=== PATIENT | female | born 1960 | race Caucasian/White ===

== ENCOUNTER 2017-10-13 15:09 | Inpatient (IN) ==
--- NOTE | 2017-10-13 15:49 | XRay Report ---
Indication: Clearance XR chest 1V: Comparison: 03/01/2016 Technique: Single upright portable chest Findings: Patient showed similar appearance to the previous examination with normal heart, mediastinum and central vascularity. No acute pulmonary abnormality seen. No acute new bony findings are seen. Impression: No active cardiopulmonary findings. .
--- NOTE | 2017-10-13 16:18 | Emergency Department Report ---
Medical Clearance HPI - General Chief complaint: Medical Clearance Stated complaint: [facility] clearance Time Seen by Provider: 10/13/17 15:10 Source: patient, RN notes reviewed, old records reviewed, other ([facility]) Mode of arrival: ambulatory Limitations: altered mental status - History of Present Illness HPI Narrative: 57yo woman presented to the ER for evaluation of delusional beliefs. Pt is a known schizophrenic, living in a MD in a [facility]. Over the last several weeks, she has been having increasingly delusional beliefs related to her friends and family. Pts medications are apparently at maximum dosing. Pt is pending [facility] admission for further eval/stabilization. complaint: medical clearance requested Onset (ago): week(s) Reason for Medical Clearance: psychiatric condition Place: other ([facility]) Alleged Intoxication: No Compliant with Home Medications: Yes Traumatic Symptoms: denies traumatic injury Associated Symptoms: denies other symptoms Treatments Prior to Arrival: medication Home medications: Home Medications Medication Instructions Recorded Confirmed Polyvinyl Alcohol [Artificial 1 drop BOTH EYES PRN #0 02/29/16 10/13/17 Tears] Propranolol HCl 80 mg PO DAILY #0 02/29/16 10/13/17 Tiotropium [place] [Spiriva] 1 cap ORAL INH DAILY #0 02/29/16 10/13/17 buPROPion HCl [Bupropion Xl] 150 mg PO DAILY #0 02/29/16 10/13/17 guaiFENesin [Guaifenesin] 400 mg PO BID #0 02/29/16 10/13/17 Acetaminophen [Acetaminophen Extra 1,000 mg PO BID 10/13/17 10/13/17 Strength] Albuterol/Ipratropium [Duoneb] 3 ml INH HS PRN 10/13/17 10/13/17 Aspirin [Aspirin] 81 mg PO DAILY 10/13/17 10/13/17 Cetirizine [Zyrtec] 10 mg PO DAILY PRN 10/13/17 10/13/17 Cholecalciferol (Vitamin D3) 2,000 unit PO DAILY 10/13/17 10/13/17 [Vitamin D3] Cyclobenzaprine [Flexeril] 10 mg PO HS PRN 10/13/17 10/13/17 Mag Hydrox/Aluminum Hyd/Simeth 30 ml PO Q8HR 10/13/17 10/13/17 [Alum-Mag Hydroxide-Simeth Liq] Omeprazole [Prilosec] 20 mg PO ACB 10/13/17 10/13/17 Paliperidone Palmitate [Invega 819 mg IM Q90D 10/13/17 10/13/17 Trinza] Ziprasidone HCl [Geodon] 80 mg PO BID 10/13/17 10/13/17 Allergies/Adverse reactions: Allergies Allergy/AdvReac Type Severity Reaction Status Date / Time clarithromycin Allergy Unknown Verified 07/15/17 23:43 fluphenazine Allergy Unknown Verified 07/15/17 23:43 morphine Allergy Unknown Verified 07/15/17 23:43 moxifloxacin Allergy Unknown Verified 07/15/17 23:43 Penicillins Allergy Unknown Verified 07/15/17 23:43 Tetanus Vaccines and Toxoid Allergy Unknown Verified 07/15/17 23:43 Review of Systems Limitations: ROS unobtainable due to patient's medical condition PFSH Patient Stated Medical History Dental Problems Yes Hypertension No Asthma Yes Chronic Obstructive Pulmonary Yes Disease (COPD) Gastroesophageal Reflux Yes Disease Hx Urinary Tract Infection Yes Schizophrenia Yes: MANIC DEPRESSIVE - Social History Smoking status: Never smoker Physical Exam - Limitations Limitations: altered mental status - General General appearance: alert, in no apparent distress, obese - Normal Exams: Head:: Normocephalic without trauma Eyes:: Pupils are PERRLA w/ EOMI, No scleral icterus, irritation, or foreign bodies noted ENMT:: No facial trauma, nasal exudates, pharyngeal erythema, or exudates are noted Neck:: Full range of motion, without adenopathy Lymphatic:: No lymphadenopathy Musculoskeletal:: No tenderness, or deformity noted Neurological:: Patient is alert, and oriented - Chest Chest inspection: Present: normal inspection, symmetric chest wall rise. Absent : tenderness, rash - Respiratory Respiratory exam: Present: normal lung sounds bilaterally, wheezes (Faint wheezing in LLs). Absent: respiratory distress, prolonged expiratory phase, crackles - Cardiovascular Cardiovascular exam: Present: regular rate, normal rhythm, normal heart sounds - Abdominal Exam Abdominal exam: Present: soft. Absent: distention, tenderness, guarding, rebound, rigidity - Skin Skin exam: Present: warm, dry, intact, rash (Faint rash and bruising on pts lower extremities) - Psychiatric Psychiatric exam: Present: flat affect, other (Suspicious) Course Vital Signs Temperature 98.3 F 10/13/17 15:14 Pulse Rate 84 10/13/17 15:14 Respiratory Rate 20 10/13/17 15:14 Blood Pressure 145/76 H 10/13/17 15:14 Pulse Oximetry 93 10/13/17 15:14 Temperature 98.3 F 10/13/17 15:14 Pulse Rate 84 10/13/17 15:14 Respiratory Rate 20 10/13/17 15:14 Blood Pressure 145/76 H 10/13/17 15:14 Pulse Oximetry 93 10/13/17 15:14 Medical Clearance - [facility] Narrative Medical decision making narrative: Pt cleared for admission to [facility]. Will await arrival of coordinator and physician for evaluation and transfer. - Differential Diagnosis Differential Diagnosis Narrative: Schizophrenia, husam, delirium, dementia - Medical Records Attestation: I reviewed the patient's medical records. - Lab Data Attestation: I reviewed the patient's lab results. Result diagrams: 10/13/17 15:52 10/13/17 15:52 Lab Results 10/13/17 10/13/17 10/13/17 Range/Units 15:48 15:52 15:52 WBC 10.3 (4.5-11.0) T/MM3 RBC 4.00 (4.00-5.20) M/MM3 Hgb 11.5 L (12-16) GM/DL Hct 37.8 (36-46) % MCV 94.5 (80-100) UM3 MCH 28.8 (26-34) UUG MCHC 30.4 L (31-37) GM/DL RDW Std Deviation 48.5 (36.9-50.2) FL Plt Count 240 (130-400) T/MM3 MPV 9.7 (9.4-12.4) UM3 Immature Gran % (Auto) 0.2 (0.0-0.5) % Neut % (Auto) 68.4 H (33-66) % Lymph % (Auto) 20.0 L (23-45) % [place] % (Auto) 8.7 (0-9.0) % Eos % (Auto) 2.2 (0-4) % Baso % (Auto) 0.5 (0-2) % Neut # (Auto) 7.1 (1.8-7.7) T/MM3 Lymph # (Auto) 2.1 (1-4.8) T/MM3 [place] # (Auto) 0.9 H (0-0.8) T/MM3 Eos # (Auto) 0.2 (0-0.5) T/MM3 Baso # (Auto) 0.1 (0-0.2) T/MM3 Abs Immat Gran (auto) 0.02 (0.00-0.03) T/MM3 Turbidity < 20 (0-20) Sodium 143 (134-144) MEQ/L Potassium 4.3 (3.6-5) MEQ/L Chloride 106 (98-107) MEQ/L Carbon Dioxide 26 (22-30) MEQ/L Anion Gap 11 (5-15) MEQ/L BUN 15.0 (7-17) MG/DL Creatinine 1.8 H (0.7-1.2) MG/DL GFR Calculation 29 BUN/Creatinine Ratio 8 (6-26) RATIO Glucose 92 (65-110) MG/DL Calculated Osmolality 276 (261-280) MOSM/KG Calcium 9.4 (8.4-10.2) MG/DL Total Bilirubin 0.40 (0.20-1.30) MG/DL Icterus Index < 2 (0-7) AST 16 (14-36) U/L ALT 24 (9-52) U/L Alkaline Phosphatase 94 (38-126) U/L Total Protein 7.2 (6.3-8.2) G/DL Albumin 3.9 (3.5-5.0) G/DL Globulin 3.3 (2.4-3.6) G/DL Albumin/Globulin Ratio 1.2 (1.1-2.2) RATIO Specimen Hemolysis < 15 (0-25) Ur Collection Type Urine, clean catch Urine Color Yellow (YELLOW) Urine Clarity Clear Urine pH 6.5 (5.0-8.0) Ur Specific [place] <=1.005 L (1.015-1.025) Urine Protein Negative (NEGATIVE) Urine Glucose (UA) Negative (NEGATIVE) Urine Ketones Negative (NEGATIVE) Urine Occult Blood Negative (NEGATIVE) Urine Nitrate Negative (NEGATIVE) Urine Bilirubin Negative (NEGATIVE) Urine Urobilinogen 0.2 (NORMAL) EU/DL Ur Leukocyte Esterase 1+ A (NEGATIVE) Urine RBC None seen (0-3) /HPF Urine WBC 1-3 (0-5) /HPF Ur Squamous Epith Cells 0-5 Urine Bacteria None seen (NEGATIVE) Ur Culture Indicated? Cult not indicated Salicylates < 1.0 L (2-20) MG/DL Urine Opiates Screen ng/mL Ur Oxycodone Screen ng/mL Urine Methadone Screen ng/mL Ur Propoxyphene Screen ng/mL Acetaminophen < 10 L (10-30) UG/ML Ur Barbiturates Screen ng/mL U Tricyclic Antidepress ng/mL Ur Phencyclidine Scrn ng/mL Ur Amphetamines Screen ng/mL U Methamphetamines Scrn ng/mL U Benzodiazepines Scrn ng/mL Urine Cocaine Screen ng/mL U Cannabinoids Screen ng/mL Alcohol, Quantitative <10 (<10) MG/DL 10/13/17 Range/Units 15:52 WBC (4.5-11.0) T/MM3 RBC (4.00-5.20) M/MM3 Hgb (12-16) GM/DL Hct (36-46) % MCV (80-100) UM3 MCH (26-34) UUG MCHC (31-37) GM/DL RDW Std Deviation (36.9-50.2) FL Plt Count (130-400) T/MM3 MPV (9.4-12.4) UM3 Immature Gran % (Auto) (0.0-0.5) % Neut % (Auto) (33-66) % Lymph % (Auto) (23-45) % [place] % (Auto) (0-9.0) % Eos % (Auto) (0-4) % Baso % (Auto) (0-2) % Neut # (Auto) (1.8-7.7) T/MM3 Lymph # (Auto) (1-4.8) T/MM3 [place] # (Auto) (0-0.8) T/MM3 Eos # (Auto) (0-0.5) T/MM3 Baso # (Auto) (0-0.2) T/MM3 Abs Immat Gran (auto) (0.00-0.03) T/MM3 Turbidity (0-20) Sodium (134-144) MEQ/L Potassium (3.6-5) MEQ/L Chloride (98-107) MEQ/L Carbon Dioxide (22-30) MEQ/L Anion Gap (5-15) MEQ/L BUN (7-17) MG/DL Creatinine (0.7-1.2) MG/DL GFR Calculation BUN/Creatinine Ratio (6-26) RATIO Glucose (65-110) MG/DL Calculated Osmolality (261-280) MOSM/KG Calcium (8.4-10.2) MG/DL Total Bilirubin (0.20-1.30) MG/DL Icterus Index (0-7) AST (14-36) U/L ALT (9-52) U/L Alkaline Phosphatase (38-126) U/L Total Protein (6.3-8.2) G/DL Albumin (3.5-5.0) G/DL Globulin (2.4-3.6) G/DL Albumin/Globulin Ratio (1.1-2.2) RATIO Specimen Hemolysis (0-25) Ur Collection Type Urine Color (YELLOW) Urine Clarity Urine pH (5.0-8.0) Ur Specific [place] (1.015-1.025) Urine Protein (NEGATIVE) Urine Glucose (UA) (NEGATIVE) Urine Ketones (NEGATIVE) Urine Occult Blood (NEGATIVE) Urine Nitrate (NEGATIVE) Urine Bilirubin (NEGATIVE) Urine Urobilinogen (NORMAL) EU/DL Ur Leukocyte Esterase (NEGATIVE) Urine RBC (0-3) /HPF Urine WBC (0-5) /HPF Ur Squamous Epith Cells Urine Bacteria (NEGATIVE) Ur Culture Indicated? Salicylates (2-20) MG/DL Urine Opiates Screen Negative ng/mL Ur Oxycodone Screen Negative ng/mL Urine Methadone Screen Negative ng/mL Ur Propoxyphene Screen Negative ng/mL Acetaminophen (10-30) UG/ML Ur Barbiturates Screen Negative ng/mL U Tricyclic Antidepress Negative ng/mL Ur Phencyclidine Scrn Negative ng/mL Ur Amphetamines Screen Negative ng/mL U Methamphetamines Scrn Negative ng/mL U Benzodiazepines Scrn Negative ng/mL Urine Cocaine Screen Negative ng/mL U Cannabinoids Screen Negative ng/mL Alcohol, Quantitative (<10) MG/DL - Radiology Data Attestation: I reviewed the patient's radiology results. CXR: Findings: Patient showed similar appearance to the previous examination with normal heart, mediastinum and central vascularity. No acute pulmonary abnormality seen. No acute new bony findings are seen. Impression: No active cardiopulmonary findings. Disposition Clinical Impression: Delusion Schizophrenia Qualifiers: Schizophrenia type: unspecified Qualified Code(s): F20.9 - Schizophrenia, unspecified Disposition: 66 To [facility] Print Language: Romansh Condition: Stable Prescriptions: No Action Tiotropium [place] [Spiriva] 1 cap ORAL INH DAILY #0 buPROPion HCl [Bupropion Xl] 150 mg PO DAILY #0 guaiFENesin [Guaifenesin] 400 mg PO BID #0 Cyclobenzaprine [Flexeril] 10 mg PO HS PRN PRN Reason: Muscle Spasm Albuterol/Ipratropium [Duoneb] 3 ml INH HS PRN PRN Reason: Cough Cetirizine [Zyrtec] 10 mg PO DAILY PRN PRN Reason: Allergy Symptoms Propranolol HCl 80 mg PO DAILY #0 Polyvinyl Alcohol [Artificial Tears] 1 drop BOTH EYES PRN #0 Aspirin [Aspirin] 81 mg PO DAILY Omeprazole [Prilosec] 20 mg PO ACB Cholecalciferol (Vitamin D3) [Vitamin D3] 2,000 unit PO DAILY Ziprasidone HCl [Geodon] 80 mg PO BID Mag Hydrox/Aluminum Hyd/Simeth [Alum-Mag Hydroxide-Simeth Liq] 30 ml PO Q8HR Acetaminophen [Acetaminophen Extra Strength] 1,000 mg PO BID Paliperidone Palmitate [Invega Trinza] 819 mg IM Q90D Referrals: Jessica Cheek MD [Family Provider] - Time of Disposition: 16:49 - Seen By: physician
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
[2017-10-13] MEDS ORDERED: HALOPERIDOL 0.5 MG TABLET PO PRN (17:32)
[2017-10-13] MEDS ORDERED: HALOPERIDOL 5 MG/ML INJECTION IM PRN (17:32)
[2017-10-13] MEDS ORDERED: LORazepam 0.5 MG TABLET PO PRN (17:32)
[2017-10-13] MEDS ORDERED: CYCLOBENZAPRINE 10 MG TABLET PO PRN (18:01)
[2017-10-13] MEDS ORDERED: SYSTANE EYE DROPS 0.7ml EACH EYE PRN (18:01)
[2017-10-13 18:36] VITALS: BMI 32.9
[2017-10-13] MEDS: ZIPRASIDONE 40 MG CAPSULE PO SCH (20:19)
[2017-10-13] MEDS: ACETAMINOPHEN 500 MG TABLET PO SCH (20:19)
[2017-10-13] MEDS: GUAIFENESIN 400MG TABLET PO SCH (20:19)
[2017-10-13] MEDS: ALBUTEROL/IPRATROPIUM 2.5mg-0.5mg/3ml NEB AEROSOL PRN (21:30)
[2017-10-14] MEDS: MAG-AL + SIM ORAL LIQUID 30ml PO SCH ×3 (03:25→17:52)
[2017-10-14] MEDS: OMEPRAZOLE 20 MG CAPSULE PO SCH (05:44)
[2017-10-14] MEDS: ALBUTEROL/IPRATROPIUM 2.5mg-0.5mg/3ml NEB AEROSOL PRN (08:00)
[2017-10-14] MEDS: TIOTROPIUM 18mcg/cap HANDIHALER ORAL INH SCH (08:10)
[2017-10-14] MEDS: ZIPRASIDONE 40 MG CAPSULE PO SCH ×2 (10:30→20:16)
[2017-10-14] MEDS: PROPRANOLOL LA 80 MG CAPSULE PO SCH (10:32)
[2017-10-14] MEDS: GUAIFENESIN 400MG TABLET PO SCH ×2 (10:33→20:16)
[2017-10-14] MEDS: ASPIRIN 81 MG CHEWABLE TABLET PO SCH (10:33)
[2017-10-14] MEDS: ACETAMINOPHEN 500 MG TABLET PO SCH ×2 (10:34→20:16)
[2017-10-14] MEDS: BuPROPion XL 150mg (24HR) TABLET PO SCH (10:57)
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
[2017-10-14] MEDS: CYCLOBENZAPRINE 10 MG TABLET PO PRN (20:17)
[2017-10-15] MEDS: MAG-AL + SIM ORAL LIQUID 30ml PO SCH ×3 (03:12→17:35)
[2017-10-15] MEDS: OMEPRAZOLE 20 MG CAPSULE PO SCH (07:43)
[2017-10-15] MEDS: GUAIFENESIN 400MG TABLET PO SCH ×2 (08:23→20:00)
[2017-10-15] MEDS: PROPRANOLOL LA 80 MG CAPSULE PO SCH (08:23)
[2017-10-15] MEDS: BuPROPion XL 150mg (24HR) TABLET PO SCH (08:23)
[2017-10-15] MEDS: ZIPRASIDONE 40 MG CAPSULE PO SCH ×2 (08:23→17:35)
[2017-10-15] MEDS: ASPIRIN 81 MG CHEWABLE TABLET PO SCH (08:26)
[2017-10-15] MEDS: ACETAMINOPHEN 500 MG TABLET PO SCH ×2 (08:26→20:00)
[2017-10-15] MEDS: ALBUTEROL/IPRATROPIUM 2.5mg-0.5mg/3ml NEB AEROSOL PRN ×2 (08:30→20:55)
[2017-10-15] MEDS: TIOTROPIUM 18mcg/cap HANDIHALER ORAL INH SCH (08:43)
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
[2017-10-15] MEDS: CYCLOBENZAPRINE 10 MG TABLET PO PRN (20:00)
[2017-10-16] MEDS: MAG-AL + SIM ORAL LIQUID 30ml PO SCH ×3 (02:33→17:51)
[2017-10-16] MEDS: OMEPRAZOLE 20 MG CAPSULE PO SCH (09:42)
[2017-10-16] MEDS: BuPROPion XL 150mg (24HR) TABLET PO SCH (09:43)
[2017-10-16] MEDS: ASPIRIN 81 MG CHEWABLE TABLET PO SCH (09:43)
[2017-10-16] MEDS: GUAIFENESIN 400MG TABLET PO SCH ×2 (09:43→20:18)
[2017-10-16] MEDS: ZIPRASIDONE 40 MG CAPSULE PO SCH ×2 (09:43→17:49)
[2017-10-16] MEDS: ACETAMINOPHEN 500 MG TABLET PO SCH ×2 (09:43→20:18)
[2017-10-16] MEDS ORDERED: CYCLOBENZAPRINE 5 MG TABLET PO PRN (10:00)
[2017-10-16] MEDS: TIOTROPIUM 18mcg/cap HANDIHALER ORAL INH SCH (10:30)
[2017-10-16] MEDS: PROPRANOLOL LA 80 MG CAPSULE PO SCH (13:35)
--- NOTE | 2017-10-16 18:45 | Neuropsych Progress Note ---
[facility] Subjective Date: 10/16/17 - Sujective/Severity of Illness Medications: Acetaminophen (Tylenol) 1,000 mg PO BID [facility] Last Admin: 10/16/17 09:43 Dose: 1,000 mg Al Hydroxide/Mg Hydroxide (Maalox Plus) 30 ml PO Q8HR [facility] Last Admin: 10/16/17 17:51 Dose: 30 ml Albuterol/Ipratropium (Duoneb) 3 ml AEROSOL HS PRN PRN Reason: Cough Last Admin: 10/15/17 20:55 Dose: 3 ml Aspirin (Asa) 81 mg PO DAILY [facility] Last Admin: 10/16/17 09:43 Dose: 81 mg Bupropion HCl (Wellbutrin Xl) 150 mg PO DAILY [facility] Last Admin: 10/16/17 09:43 Dose: 150 mg Cyclobenzaprine HCl (Flexeril) 5 mg PO HS PRN PRN Reason: Muscle spasm Guaifenesin (Mucinex) 400 mg PO BID [facility] Last Admin: 10/16/17 09:43 Dose: 400 mg Haloperidol (Haldol) 0.5 mg PO Q6H PRN PRN Reason: Extreme agitation Haloperidol Lactate (Haldol) 0.5 mg IM Q6H PRN PRN Reason: Extreme agitation Lorazepam (Ativan) 0.5 mg PO Q6H PRN PRN Reason: Extreme agitation Lorazepam (Ativan Inj) 0.5 mg IM Q6H PRN PRN Reason: Extreme agitation Omeprazole (Prilosec) 20 mg PO ACB [facility] Last Admin: 10/16/17 09:42 Dose: 20 mg Polyethyl Glycol/Propylene Glycol (Systane Eye Drops) 1 drop EACH EYE PRN PRN Propranolol HCl (Inderal La) 80 mg PO DAILY [facility] Last Admin: 10/16/17 13:35 Dose: 80 mg Tiotropium [place] (Spiriva) 1 cap ORAL INH DAILY [facility] Last Admin: 10/16/17 10:30 Dose: 1 cap Ziprasidone (Geodon) 80 mg PO BIDWM [facility] Last Admin: 10/16/17 17:49 Dose: 80 mg Subjective: Patient seen and chart reviewed. Case discussed with treatment team. Patient is in dayroom taking a nap during time of rounds. She has been isolating less though some of what she shares in group is bizarre. Patient has denied any SI or HI. Patient has denied any adverse side effects related to psychotropic medications other than fatigue, but reports she feels more energetic than previously. Nursing staff report patient has not had any significant behavioral difficulties on the unit otherwise. Patient has been adherent with medications. Patient slept 9.5 hours overnight. VSS. Patient is eating well. Psychotropic PRNs required in the past 24 hours: none. Start Time: 10:40 Stop Time: 11:00 Mental Status Exam Vitals: Last Vital Signs Temp 98.2 F 10/16/17 16:00 Pulse 85 10/16/17 16:00 Resp 18 10/16/17 16:00 BP 145/71 H 10/16/17 16:00 Pulse Ox 92 10/16/17 16:00 Height: 1.78 m Weight: 104.2 kg - Mental Status Exam Muscle Strength/Tone: Normal Dressing: Casual Grooming: Disheveled Attitude: Cooperative Motor Activity: Normal Eye Contact: Good Speech: Normal Volume: Normal Rhythm: Appropriate Rhythm Orientation: Disoriented to time (can name month/year), Oriented to person, Oriented to place Mood: Neutral Affect: Blunted Rate of Thoughts: Appropriate Rate Thought Organization: Disorganized, Tangential Associations: Illogical Abstract Reasoning: Poor abstract reasoning Thought Content: Paranoia (seems to be improving) Perception/Psychotic: Psychotic (delusions only, denies AVH) Current Hallucinations: Auditory (unclear) Language: Naming Intact Fund of Knowledge: Other (likely decreased from baseline) Memory: Poor-recent Suicidal Ideation: Denies Homicidal Ideation: Denies Insight: Impaired Judgement: Impaired Impulse Control: Fair - Laboratory Result Diagrams: 10/16/17 07:19 10/16/17 07:19 Laboratory Results - last 24 hr 10/16/17 10/16/17 07:19 07:19 WBC 6.3 RBC 3.85 L Hgb 11.2 L Hct 36.4 MCV 94.5 MCH 29.1 MCHC 30.8 L RDW Std Deviation 47.1 Plt Count 260 MPV 9.7 Immature Gran % (Auto) 0.2 Neut % (Auto) 61.7 Lymph % (Auto) 25.4 Wagoner % (Auto) 8.1 Eos % (Auto) 4.0 Baso % (Auto) 0.6 Neut # (Auto) 3.9 Lymph # (Auto) 1.6 Wagoner # (Auto) 0.5 Eos # (Auto) 0.3 Baso # (Auto) 0.0 Abs Immat Gran (auto) 0.01 Turbidity < 20 Sodium 147 H Potassium 4.6 Chloride 108 H Carbon Dioxide 31 H Anion Gap 8 BUN 23.0 H D Creatinine 1.6 H D GFR Calculation 33 BUN/Creatinine Ratio 14 Glucose 102 Hemoglobin A1c 5.4 Calculated Osmolality 286 H Calcium 9.5 Icterus Index < 2 Triglycerides 154 H Cholesterol 120 L LDL Cholesterol, Calc 56.2 L VLDL Cholesterol 30.8 H HDL Cholesterol 33 L Cholesterol/HDL Ratio 3.6 Specimen Hemolysis < 15 Assessment and Plan (1) Psychosis Problem details: R/O Delirium due to unknown etiology History of Bipolar 1 disorder R/O Schizoaffective disorder R/O Delusional disorder R/O Major neurocognitive disorder Current visit: Yes Status: Acute (2) COPD (chronic obstructive pulmonary disease) Current visit: Yes Status: Acute (3) HTN (hypertension) Current visit: Yes Status: Acute (4) HLD (hyperlipidemia) Current visit: Yes Status: Acute (5) CAD (coronary artery disease) Current visit: Yes Status: Acute (6) CKD (chronic kidney disease) Current visit: Yes Status: Acute (7) Obesity Current visit: Yes Status: Acute (8) GERD (gastroesophageal reflux disease) Current visit: Yes Status: Acute (9) Osteoarthritis Current visit: Yes Status: Acute Continue current care; patient seems to be more energetic and less isolative. I suspect Geodon is more effective when she is taking it with meals as prescribed. Monitor mood, behavior and response to treatment. Hospital Course Summary Disclaimer: The visit summary below is not to be considered part of the above Progress Note. Hospital Course: Plan 10/13/16 Agree with admission to [facility]. Creatinine is elevated with a normal BUN - this was discussed with her STAFF AIR TACTICAL OFFICER, Yuliya Wagner. She sees Dr. Callaway and Dr. Francis for chronic kidney disease. Creatinine was also 1.8 in July 2017. Regarding contusion to her left lower extremity, this was also evaluated by Yuliya Wagner. She had normal range of motion a week ago, and she reports that her leg is improving. Chest x-ray reviewed, no evidence for pneumonia. Likewise, no wheezing on exam. We'll continue to monitor for COPD exacerbation or any respiratory symptoms. Patient requests to discontinue aspirin because she no longer has chest pain ( however, earlier in conversation, she reported chest pain) - would recommend to continue for now and follow up with Dr. Sanchez. Chart reviewed. Medically stable. 10/14/17 Psych: Decrease Flexeril from 10mg to 5mg at HS. 10/15/17 Psych: Patient improved from yesterday. Will change dosing of Geodon BID to with meals. It is unclear if medication was being taken with food at facility. Monitor mood, behavior and response to treatment. 10/16/17 Psych: Continue current care; patient seems to be more energetic and less isolative. It may be that Geodon is more effective when she is taking it with meals as prescribed. Monitor mood, behavior and response to treatment.
[2017-10-17] MEDS: PROPRANOLOL LA 80 MG CAPSULE PO SCH (08:23)
[2017-10-17] MEDS: BuPROPion XL 150mg (24HR) TABLET PO SCH (08:23)
[2017-10-17] MEDS: GUAIFENESIN 400MG TABLET PO SCH ×2 (08:23→22:01)
[2017-10-17] MEDS: ACETAMINOPHEN 500 MG TABLET PO SCH ×4 (08:24→22:07)
[2017-10-17] MEDS: ZIPRASIDONE 40 MG CAPSULE PO SCH ×2 (08:25→17:22)
[2017-10-17] MEDS: OMEPRAZOLE 20 MG CAPSULE PO SCH (08:30)
[2017-10-17] MEDS: ASPIRIN 81 MG CHEWABLE TABLET PO SCH (08:30)
[2017-10-17] MEDS: MAG-AL + SIM ORAL LIQUID 30ml PO SCH ×4 (08:34→20:19)
[2017-10-17] MEDS: TIOTROPIUM 18mcg/cap HANDIHALER ORAL INH SCH (09:11)
--- NOTE | 2017-10-17 15:18 | Progress Note ---
- Date 10/17/17 Subjective: Kami is seen this afternoon while watching TV. She is overall feeling good without any difficulty. She reports that her breathing feels fine as long as she uses her Advair routinely. Appetite is good and bowels are moving regularly. Objective Vital signs: Temperature 98 F 10/17/17 08:00 Pulse Rate 103 H 10/17/17 08:00 Respiratory Rate 18 10/17/17 08:00 Blood Pressure 155/83 H 10/17/17 08:00 Pulse Oximetry 96 10/17/17 08:00 Height/Weight/BMI: Height 1.78 m Weight 104.2 kg Body Mass Index 32.9 - Constitutional Present: no acute distress, well nourished, well developed - Routine HEENT Exam Eye: Present: EOMI ENT: Present: mucous membranes moist, dentition normal - Routine Respiratory Exam Present: CTA bilaterally. Absent: wheezes - Routine Cardiovascular Exam Present: RRR, S1, S2. Absent: murmur - Routine Abdominal Exam Present: soft, normoactive bowel sounds, non distended. Absent: tenderness - Routine Extremities Exam Present: normal capillary refill - Routine Skin Exam Present: dry, warm - Routine Neurological Exam Present: alert, CN II-XII intact, moving all extremities - Routine Lymphatic Exam Lymphatic: Absent: adenopathy - Routine Psychiatric Exam Present: normal affect, cooperative Results - Labs CBC & Chem 7: 10/16/17 07:19 10/17/17 07:11 Assessment and Plan (1) Delusion Current visit: Yes Status: Acute Assessment and Plan: Impression COPD HTN Hyperlipidemia CAD Chronic kidney disease MDD Schizophrenia GERD OA Obesity Plan Overall appears medially stable. Labs from today reviewed. Anesthesiology Medical Doctor 1.5 (known CKD with previous Anesthesiology Medical Doctor 1.8 in July) Continue with inhalers given underlying COPD Sodium slightly elevated, Encourage PO intake. Check BMP next week Encourage to participate in unit activities. - Physician Narrative Narrative: Date: 10/17/17 Time: 1515 Hospital Course Summary Disclaimer: The visit summary below is not to be considered part of the above Progress Note. Hospital Course: Plan 10/13/16 Agree with admission to [facility]. Creatinine is elevated with a normal BUN - this was discussed with her CERTIFIED HYPERBARIC TECHNOLOGIST, Yuliya Wanger. She sees Dr. Callaway and Dr. Francis for chronic kidney disease. Creatinine was also 1.8 in July 2017. Regarding contusion to her left lower extremity, this was also evaluated by Yuliya Wagner. She had normal range of motion a week ago, and she reports that her leg is improving. Chest x-ray reviewed, no evidence for pneumonia. Likewise, no wheezing on exam. We'll continue to monitor for COPD exacerbation or any respiratory symptoms. Patient requests to discontinue aspirin because she no longer has chest pain ( however, earlier in conversation, she reported chest pain) - would recommend to continue for now and follow up with Dr. Sanchez. Chart reviewed. Medically stable. 10/14/17 Psych: Decrease Flexeril from 10mg to 5mg at HS. 10/15/17 Psych: Patient improved from yesterday. Will change dosing of Geodon BID to with meals. It is unclear if medication was being taken with food at facility. Monitor mood, behavior and response to treatment. 10/16/17 Psych: Continue current care; patient seems to be more energetic and less isolative. It may be that Geodon is more effective when she is taking it with meals as prescribed. Monitor mood, behavior and response to treatment. 10/17- Overall appears medially stable. Labs from today reviewed. Anesthesiology Medical Doctor 1.5 (known CKD with previous Anesthesiology Medical Doctor 1.8 in July). Continue with inhalers given underlying COPD. Sodium slightly elevated, Encourage PO intake. Check BMP next week
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
[2017-10-18] MEDS: MAG-AL + SIM ORAL LIQUID 30ml PO SCH ×2 (02:30→08:05)
[2017-10-18] MEDS: ZIPRASIDONE 40 MG CAPSULE PO SCH ×2 (08:04→17:04)
[2017-10-18] MEDS: OMEPRAZOLE 20 MG CAPSULE PO SCH (08:04)
[2017-10-18] MEDS: GUAIFENESIN 400MG TABLET PO SCH ×2 (08:05→20:24)
[2017-10-18] MEDS: ASPIRIN 81 MG CHEWABLE TABLET PO SCH (08:05)
[2017-10-18] MEDS: ACETAMINOPHEN 500 MG TABLET PO SCH (08:05)
[2017-10-18] MEDS: PROPRANOLOL LA 80 MG CAPSULE PO SCH (08:05)
[2017-10-18] MEDS: TIOTROPIUM 18mcg/cap HANDIHALER ORAL INH SCH (09:29)
--- NOTE | 2017-10-18 11:42 | Neuropsych Progress Note ---
[facility] Subjective Date: 10/18/17 - Sujective/Severity of Illness Medications: Acetaminophen (Tylenol) 1,000 mg PO BID [facility] Last Admin: 10/17/17 22:07 Dose: Not Given Al Hydroxide/Mg Hydroxide (Maalox Plus) 30 ml PO Q8HR [facility] Last Admin: 10/18/17 08:05 Dose: 30 ml Albuterol/Ipratropium (Duoneb) 3 ml AEROSOL HS PRN PRN Reason: Cough Last Admin: 10/15/17 20:55 Dose: 3 ml Aspirin (Asa) 81 mg PO DAILY [facility] Last Admin: 10/18/17 08:05 Dose: 81 mg Bupropion HCl (Wellbutrin Xl) 150 mg PO DAILY [facility] Last Admin: 10/17/17 08:23 Dose: 150 mg Cyclobenzaprine HCl (Flexeril) 5 mg PO HS PRN PRN Reason: Muscle spasm Guaifenesin (Mucinex) 400 mg PO BID [facility] Last Admin: 10/18/17 08:05 Dose: 400 mg Haloperidol (Haldol) 0.5 mg PO Q6H PRN PRN Reason: Extreme agitation Haloperidol Lactate (Haldol) 0.5 mg IM Q6H PRN PRN Reason: Extreme agitation Lorazepam (Ativan) 0.5 mg PO Q6H PRN PRN Reason: Extreme agitation Lorazepam (Ativan Inj) 0.5 mg IM Q6H PRN PRN Reason: Extreme agitation Omeprazole (Prilosec) 20 mg PO ACB [facility] Last Admin: 10/18/17 08:04 Dose: 20 mg Polyethyl Glycol/Propylene Glycol (Systane Eye Drops) 1 drop EACH EYE PRN PRN Propranolol HCl (Inderal La) 80 mg PO DAILY [facility] Last Admin: 10/18/17 08:05 Dose: 80 mg Tiotropium [place] (Spiriva) 1 cap ORAL INH DAILY [facility] Last Admin: 10/18/17 09:29 Dose: 1 cap Ziprasidone (Geodon) 80 mg PO BIDWM [facility] Last Admin: 10/18/17 08:04 Dose: 80 mg Subjective: Patient seen and chart reviewed. Nursing reports pt only slept 1 hour. Pt has been eating well and is pleasant with no behaviors. On face to face the pt is pleasant but is delusional. She states she is 8 months and asks if I can get the baby out of her. Nursing reports she responds to internal stimuli at times but it is not distressing to her. She reports her mood is fairly stable. Tolerating meds Start Time: 11:15 Stop Time: 11:30 Mental Status Exam Vitals: Last Vital Signs Temp 98.2 F 10/18/17 08:00 Pulse 94 10/18/17 08:00 Resp 16 10/18/17 08:00 BP 163/98 H 10/18/17 08:00 Pulse Ox 92 10/18/17 08:00 Height: 1.78 m Weight: 104.2 kg - Mental Status Exam Muscle Strength/Tone: Normal Dressing: Casual Grooming: Disheveled Attitude: Cooperative Motor Activity: Normal Eye Contact: Good Speech: Normal Volume: Normal Rhythm: Appropriate Rhythm Orientation: Disoriented to time (can name month/year), Oriented to person, Oriented to place Mood: Cheerful Rate of Thoughts: Appropriate Rate Thought Organization: Disorganized, Tangential Associations: Illogical Abstract Reasoning: Poor abstract reasoning Thought Content: Delusions, Paranoia (seems to be improving) Perception/Psychotic: Psychotic (delusions only, denies AVH) Current Hallucinations: Auditory (unclear) Language: Naming Intact Fund of Knowledge: Other (likely decreased from baseline) Memory: Poor-recent Suicidal Ideation: Denies Homicidal Ideation: Denies Insight: Impaired Judgement: Impaired Impulse Control: Fair - Laboratory Result Diagrams: 10/16/17 07:19 10/17/17 07:11 Assessment and Plan (1) Psychosis Problem details: R/O Delirium due to unknown etiology History of Bipolar 1 disorder R/O Schizoaffective disorder R/O Delusional disorder R/O Major neurocognitive disorder Current visit: Yes Status: Acute (2) COPD (chronic obstructive pulmonary disease) Current visit: Yes Status: Acute (3) HTN (hypertension) Current visit: Yes Status: Acute (4) HLD (hyperlipidemia) Current visit: Yes Status: Acute (5) CAD (coronary artery disease) Current visit: Yes Status: Acute (6) CKD (chronic kidney disease) Current visit: Yes Status: Acute (7) Obesity Current visit: Yes Status: Acute (8) GERD (gastroesophageal reflux disease) Current visit: Yes Status: Acute (9) Osteoarthritis Current visit: Yes Status: Acute Hospital Course Summary Disclaimer: The visit summary below is not to be considered part of the above Progress Note. Hospital Course: Plan 10/13/16 Agree with admission to [facility]. Creatinine is elevated with a normal BUN - this was discussed with her RESTAURANT FRONT MANAGER, Yuliya Wagner. She sees Dr. Callaway and Dr. Francis for chronic kidney disease. Creatinine was also 1.8 in July 2017. Regarding contusion to her left lower extremity, this was also evaluated by Yuliya Wagner. She had normal range of motion a week ago, and she reports that her leg is improving. Chest x-ray reviewed, no evidence for pneumonia. Likewise, no wheezing on exam. We'll continue to monitor for COPD exacerbation or any respiratory symptoms. Patient requests to discontinue aspirin because she no longer has chest pain ( however, earlier in conversation, she reported chest pain) - would recommend to continue for now and follow up with Dr. Sanchez. Chart reviewed. Medically stable. 10/14/17 Psych: Decrease Flexeril from 10mg to 5mg at HS. 10/15/17 Psych: Patient improved from yesterday. Will change dosing of Geodon BID to with meals. It is unclear if medication was being taken with food at facility. Monitor mood, behavior and response to treatment. 10/16/17 Psych: Continue current care; patient seems to be more energetic and less isolative. It may be that Geodon is more effective when she is taking it with meals as prescribed. Monitor mood, behavior and response to treatment. 10/17- Overall appears medially stable. Labs from today reviewed. Senior Javascript Developer 1.5 (known CKD with previous Senior Javascript Developer 1.8 in July). Continue with inhalers given underlying COPD. Sodium slightly elevated, Encourage PO intake. Check BMP next week 10/17/17 Psych: Will hold Wellbutrin XL for the time being and continue Geodon 80mg PO BID with meals. Last Invega Trinza injection given 10/10/17. Would like to discuss patient's baseline with daughter. Monitor mood, behavior and response to treatment. 10/18/17 Remains delusional with . Continue current care
[2017-10-19] MEDS: MAG-AL + SIM ORAL LIQUID 30ml PO SCH ×4 (01:39→16:55)
[2017-10-19] MEDS: GUAIFENESIN 400MG TABLET PO SCH ×2 (09:12→20:27)
[2017-10-19] MEDS: OMEPRAZOLE 20 MG CAPSULE PO SCH (09:12)
[2017-10-19] MEDS: ASPIRIN 81 MG CHEWABLE TABLET PO SCH (09:12)
[2017-10-19] MEDS: ZIPRASIDONE 40 MG CAPSULE PO SCH ×2 (09:12→16:55)
[2017-10-19] MEDS: PROPRANOLOL LA 80 MG CAPSULE PO SCH (09:12)
--- NOTE | 2017-10-19 11:07 | Neuropsych Progress Note ---
[facility] Subjective Date: 10/19/17 - Sujective/Severity of Illness Medications: Acetaminophen (Tylenol) 1,000 mg PO BID PRN PRN Reason: Pain Al Hydroxide/Mg Hydroxide (Maalox Plus) 30 ml PO Q8HR [facility] Last Admin: 10/19/17 09:15 Dose: Not Given Albuterol/Ipratropium (Duoneb) 3 ml AEROSOL HS PRN PRN Reason: Cough Last Admin: 10/15/17 20:55 Dose: 3 ml Aspirin (Asa) 81 mg PO DAILY [facility] Last Admin: 10/19/17 09:12 Dose: 81 mg Bupropion HCl (Wellbutrin Xl) 150 mg PO DAILY [facility] Last Admin: 10/17/17 08:23 Dose: 150 mg Cyclobenzaprine HCl (Flexeril) 5 mg PO HS PRN PRN Reason: Muscle spasm Guaifenesin (Mucinex) 400 mg PO BID [facility] Last Admin: 10/19/17 09:12 Dose: 400 mg Haloperidol (Haldol) 0.5 mg PO Q6H PRN PRN Reason: Extreme agitation Haloperidol Lactate (Haldol) 0.5 mg IM Q6H PRN PRN Reason: Extreme agitation Lorazepam (Ativan) 0.5 mg PO Q6H PRN PRN Reason: Extreme agitation Lorazepam (Ativan Inj) 0.5 mg IM Q6H PRN PRN Reason: Extreme agitation Omeprazole (Prilosec) 20 mg PO ACB [facility] Last Admin: 10/19/17 09:12 Dose: 20 mg Polyethyl Glycol/Propylene Glycol (Systane Eye Drops) 1 drop EACH EYE PRN PRN Propranolol HCl (Inderal La) 80 mg PO DAILY [facility] Last Admin: 10/19/17 09:12 Dose: 80 mg Tiotropium [place] (Spiriva) 1 cap ORAL INH DAILY [facility] Last Admin: 10/18/17 09:29 Dose: 1 cap Ziprasidone (Geodon) 80 mg PO BIDWM [facility] Last Admin: 10/19/17 09:12 Dose: 80 mg Subjective: Patient seen and chart reviewed. Nursing reports pt slept better. No behaviors noted. On face to face the pt states she is doing better. Her babies were ' born" and she feels better. She continues to have AH. She states she is upset because of the water restriction. She reports tolerating her medication well Start Time: 11:00 Stop Time: 11:15 Mental Status Exam Vitals: Last Vital Signs Temp 97.2 F 10/19/17 08:00 Pulse 95 10/19/17 08:00 Resp 16 10/19/17 08:00 BP 132/84 10/19/17 08:00 Pulse Ox 96 10/19/17 08:00 Height: 1.78 m Weight: 104.2 kg - Mental Status Exam Muscle Strength/Tone: Normal Dressing: Casual Grooming: Disheveled Attitude: Cooperative Motor Activity: Normal Eye Contact: Good Speech: Normal Volume: Normal Rhythm: Appropriate Rhythm Orientation: Disoriented to time (can name month/year), Oriented to person, Oriented to place Mood: Cheerful Rate of Thoughts: Appropriate Rate Thought Organization: Disorganized, Tangential Associations: Illogical Abstract Reasoning: Poor abstract reasoning Thought Content: Delusions, Paranoia (seems to be improving) Perception/Psychotic: Psychotic (delusions only, denies AVH) Current Hallucinations: Auditory (unclear) Language: Naming Intact Fund of Knowledge: Other (likely decreased from baseline) Memory: Poor-recent Suicidal Ideation: Denies Homicidal Ideation: Denies Insight: Impaired Judgement: Impaired Impulse Control: Fair - Laboratory Result Diagrams: 10/16/17 07:19 10/17/17 07:11 Assessment and Plan (1) Psychosis Problem details: R/O Delirium due to unknown etiology History of Bipolar 1 disorder R/O Schizoaffective disorder R/O Delusional disorder R/O Major neurocognitive disorder Current visit: Yes Status: Acute (2) COPD (chronic obstructive pulmonary disease) Current visit: Yes Status: Acute (3) HTN (hypertension) Current visit: Yes Status: Acute (4) HLD (hyperlipidemia) Current visit: Yes Status: Acute (5) CAD (coronary artery disease) Current visit: Yes Status: Acute (6) CKD (chronic kidney disease) Current visit: Yes Status: Acute (7) Obesity Current visit: Yes Status: Acute (8) GERD (gastroesophageal reflux disease) Current visit: Yes Status: Acute (9) Osteoarthritis Current visit: Yes Status: Acute Hospital Course Summary Disclaimer: The visit summary below is not to be considered part of the above Progress Note. Hospital Course: Plan 10/13/16 Agree with admission to [facility]. Creatinine is elevated with a normal BUN - this was discussed with her EMERY WHEEL MOLDER, Yuliya Wagner. She sees Dr. Callaway and Dr. Francis for chronic kidney disease. Creatinine was also 1.8 in July 2017. Regarding contusion to her left lower extremity, this was also evaluated by Yuliya Wagner. She had normal range of motion a week ago, and she reports that her leg is improving. Chest x-ray reviewed, no evidence for pneumonia. Likewise, no wheezing on exam. We'll continue to monitor for COPD exacerbation or any respiratory symptoms. Patient requests to discontinue aspirin because she no longer has chest pain ( however, earlier in conversation, she reported chest pain) - would recommend to continue for now and follow up with Dr. Sanchez. Chart reviewed. Medically stable. 10/14/17 Psych: Decrease Flexeril from 10mg to 5mg at HS. 10/15/17 Psych: Patient improved from yesterday. Will change dosing of Geodon BID to with meals. It is unclear if medication was being taken with food at facility. Monitor mood, behavior and response to treatment. 10/16/17 Psych: Continue current care; patient seems to be more energetic and less isolative. It may be that Geodon is more effective when she is taking it with meals as prescribed. Monitor mood, behavior and response to treatment. 10/17- Overall appears medially stable. Labs from today reviewed. Whip Operator 1.5 (known CKD with previous Whip Operator 1.8 in July). Continue with inhalers given underlying COPD. Sodium slightly elevated, Encourage PO intake. Check BMP next week 10/17/17 Psych: Will hold Wellbutrin XL for the time being and continue Geodon 80mg PO BID with meals. Last Invega Trinza injection given 10/10/17. Would like to discuss patient's baseline with daughter. Monitor mood, behavior and response to treatment. 10/18/17 Remains delusional with AH. Continue current care 10/19/17 Remains delusional but no behaviors. Continue current care
--- NOTE | 2017-10-19 16:41 | Progress Note ---
- Date 10/19/17 Subjective: Kami is seen today while sitting in the day room, watching TV. She complains of constipation, reporting that she took PRN medication about an hour prior to exam without results. She denies any chest pain, shortness of breath, abdominal pain, nausea, vomiting or dysuria. Her appetite is good. Nursing reports that she continues to be delusional but has not had any behaviors. Objective Vital signs: Temperature 97.2 F 10/19/17 08:00 Pulse Rate 95 10/19/17 08:00 Respiratory Rate 16 10/19/17 08:00 Blood Pressure 132/84 10/19/17 08:00 Pulse Oximetry 96 10/19/17 08:00 Height/Weight/BMI: Height 5 ft 10 in Weight 229 lb 11.547 oz Body Mass Index 32.9 - Constitutional Present: no acute distress, well nourished, well developed, obese, cooperative - Routine HEENT Exam Head: Present: normocephalic, atraumatic Eye: Present: PERRL. Absent: conjunctival icterus ENT: Present: mucous membranes moist - Routine Respiratory Exam Present: CTA bilaterally. Absent: rales, rhonchi, stridor, wheezes, crackles - Routine Cardiovascular Exam Present: RRR, S1, S2 - Routine Abdominal Exam Present: soft, normoactive bowel sounds, non tender, distended. Absent: rebound , guarding, firm - Routine Extremities Exam Present: edema (1+ bilaterally), non tender, full ROM, pulses intact - Routine Back/Spine/Pelvis Exam Back/Spine: Present: full ROM. Absent: vertebral tenderness - Routine Musculoskeletal Exam Musculoskeletal: Present: moving extremities well - Routine Skin Exam Present: intact, dry, warm. Absent: jaundice Comments: afebrile. - Routine Neurological Exam Present: alert, moving all extremities, normal speech. Absent: facial asymmetry - Routine Lymphatic Exam Lymphatic: Absent: lymphedema - Routine Psychiatric Exam Present: cooperative Results - Labs CBC & Chem 7: 10/16/17 07:19 10/17/17 07:11 Assessment and Plan (1) Delusion Current visit: Yes Status: Acute Assessment and Plan: Impression COPD HTN Hyperlipidemia CAD Chronic kidney disease MDD Schizophrenia GERD OA Obesity Constipation Plan - 10/19/17 Overall, Kami appears medially stable. Continue psychiatric care per Dr. Avila and team. Complains of constipation. Will add miralax and senna plus daily. MOM PRN. Continue to encourage bowel motivation. Continue with inhalers given underlying COPD. Breathing stable without wheezing on exam. Continue to encourage oral intake. Will recheck BMP in AM to monitor electrolytes and renal function given recent hypernatremia. Will check CBC in AM to monitor blood counts. Encourage to participate in unit activities. MD: The patient was discussed with the PA. There is complaints of constipation so she added MiraLAX and senna. Her vital signs are upper normal. There's been no labs since the but that was reviewed. I agree with the above assessment and plan. Resuscitation Status: Full Code - Time spent with patient Time with patient PN: 25 minutes - Physician Narrative Physician: Andra Granda MD Narrative: Date: 10/19/17 Time: 1636 Hospital Course Summary Disclaimer: The visit summary below is not to be considered part of the above Progress Note. Hospital Course: Plan 10/13/16 [facility]gree [facility]. Creatinine is elevated with a normal BUN - this was discussed with her EXPERIMENTAL MECHANIC, Yuliya Wagner. She sees Dr. Callaway and Dr. Francis for chronic kidney disease. Creatinine was also 1.8 in July 2017. Regarding contusion to her left lower extremity, this was also evaluated by Yuliya Wagner. She had normal range of motion a week ago, and she reports that her leg is improving. Chest x-ray reviewed, no evidence for pneumonia. Likewise, no wheezing on exam. We'll continue to monitor for COPD exacerbation or any respiratory symptoms. Patient requests to discontinue aspirin because she no longer has chest pain ( however, earlier in conversation, she reported chest pain) - would recommend to continue for now and follow up with Dr. Sanchez. Chart reviewed. Medically stable. 10/14/17 Psych: Decrease Flexeril from 10mg to 5mg at HS. 10/15/17 Psych: Patient improved from yesterday. Will change dosing of Geodon BID to with meals. It is unclear if medication was being taken with food at facility. Monitor mood, behavior and response to treatment. 10/16/17 Psych: Continue current care; patient seems to be more energetic and less isolative. It may be that Geodon is more effective when she is taking it with meals as prescribed. Monitor mood, behavior and response to treatment. 10/17- Overall appears medially stable. Labs from today reviewed. Marketing Assistant Manager 1.5 (known CKD with previous Marketing Assistant Manager 1.8 in July). Continue with inhalers given underlying COPD. Sodium slightly elevated, Encourage PO intake. Check BMP next week 10/17/17 Psych: Will hold Wellbutrin XL for the time being and continue Geodon 80mg PO BID with meals. Last Invega Trinza injection given 10/10/17. Would like to discuss patient's baseline with daughter. Monitor mood, behavior and response to treatment. 10/18/17 Remains delusional with AH. Continue current care 10/19/17 Remains delusional but no behaviors. Continue current care Plan - 10/19/17 Overall, Kami appears medially stable. Continue psychiatric care per Dr. Avila and team. Complains of constipation. Will add miralax and senna plus daily. MOM PRN. Continue to encourage bowel motivation. Continue with inhalers given underlying COPD. Breathing stable without wheezing on exam. Continue to encourage oral intake. Will recheck BMP in AM to monitor electrolytes and renal function given recent hypernatremia. Will check CBC in AM to monitor blood counts. Encourage to participate in unit activities.
[2017-10-19] MEDS: SENNA + DOCUSATE TABLET PO SCH (20:27)
[2017-10-19] MEDS: TIOTROPIUM 18mcg/cap HANDIHALER ORAL INH SCH (20:56)
[2017-10-19] MEDS: ACETAMINOPHEN 500 MG TABLET PO PRN (23:26)
[2017-10-20] MEDS: OMEPRAZOLE 20 MG CAPSULE PO SCH (06:34)
[2017-10-20] MEDS: TIOTROPIUM 18mcg/cap HANDIHALER ORAL INH SCH (09:05)
[2017-10-20] MEDS: MAG-AL + SIM ORAL LIQUID 30ml PO SCH ×3 (09:09→17:51)
[2017-10-20] MEDS: ZIPRASIDONE 40 MG CAPSULE PO SCH ×2 (09:09→17:51)
[2017-10-20] MEDS: ASPIRIN 81 MG CHEWABLE TABLET PO SCH (09:09)
[2017-10-20] MEDS: PROPRANOLOL LA 80 MG CAPSULE PO SCH (09:09)
[2017-10-20] MEDS: GUAIFENESIN 400MG TABLET PO SCH ×2 (09:09→20:50)
[2017-10-20] MEDS: SENNA + DOCUSATE TABLET PO SCH ×2 (09:10→20:50)
[2017-10-20] MEDS: POLYETHYL GLYCOL 3350 17gm PACKET PO SCH (09:10)
--- NOTE | 2017-10-20 15:34 | Neuropsych Progress Note ---
[facility] Subjective Date: 10/20/17 - Sujective/Severity of Illness Medications: Acetaminophen (Tylenol) 1,000 mg PO BID PRN PRN Reason: Pain Last Admin: 10/19/17 23:26 Dose: 1,000 mg Al Hydroxide/Mg Hydroxide (Maalox Plus) 30 ml PO Q8HR [facility] Last Admin: 10/20/17 09:09 Dose: Not Given Albuterol/Ipratropium (Duoneb) 3 ml AEROSOL HS PRN PRN Reason: Cough Last Admin: 10/15/17 20:55 Dose: 3 ml Aspirin (Asa) 81 mg PO DAILY [facility] Last Admin: 10/20/17 09:09 Dose: 81 mg Bupropion HCl (Wellbutrin Xl) 150 mg PO DAILY [facility] Last Admin: 10/17/17 08:23 Dose: 150 mg Cyclobenzaprine HCl (Flexeril) 5 mg PO HS PRN PRN Reason: Muscle spasm Guaifenesin (Mucinex) 400 mg PO BID [facility] Last Admin: 10/20/17 09:09 Dose: 400 mg Haloperidol (Haldol) 0.5 mg PO Q6H PRN PRN Reason: Extreme agitation Haloperidol Lactate (Haldol) 0.5 mg IM Q6H PRN PRN Reason: Extreme agitation Lorazepam (Ativan) 0.5 mg PO Q6H PRN PRN Reason: Extreme agitation Lorazepam (Ativan Inj) 0.5 mg IM Q6H PRN PRN Reason: Extreme agitation Magnesium Hydroxide (Mom) 30 ml PO DAILY PRN PRN Reason: Constipation Last Admin: 10/19/17 15:32 Dose: 30 ml Omeprazole (Prilosec) 20 mg PO ACB [facility] Last Admin: 10/20/17 06:34 Dose: 20 mg Polyethyl Glycol/Propylene Glycol (Systane Eye Drops) 1 drop EACH EYE PRN PRN Polyethylene Glycol (Miralax) 17 gm PO DAILY [facility] Last Admin: 10/20/17 09:10 Dose: 17 gm Propranolol HCl (Inderal La) 80 mg PO DAILY [facility] Last Admin: 10/20/17 09:09 Dose: 80 mg Senna/Docusate Sodium (Senna Plus Tablet) 1 tab PO BID [facility] Last Admin: 10/20/17 09:10 Dose: 1 tab Tiotropium Thompson (Spiriva) 1 cap ORAL INH DAILY [facility] Last Admin: 10/19/17 20:56 Dose: 1 cap Ziprasidone (Geodon) 80 mg PO BIDWM [facility] Last Admin: 10/20/17 09:09 Dose: 80 mg Subjective: Patient seen and chart reviewed. Case discussed with treatment team. On interview, patient is less bizarre and seems to be gaining insight. She reports her mood is good. She says she isn't sure how Rose (the lady at the DC she was concerned about) is feeling now, but if she is upset with her, she will go to the nurses. She says she was initially upset about having her water restricted, but now she has been sleeping much better and feels that her brain is working better because of it. Patient denies any SI, HI or AVH though she talks to "people" in her room at times (such as her children). Patient denies any adverse side effects related to psychotropic medications. Nursing staff report has not had significant behavioral difficulties on the unit. Patient has been adherent with medications. Patient slept 6.25 hours overnight. VSS. Patient is eating well. Psychotropic PRNs required in the past 24 hours: none. Start Time: 12:00 Stop Time: 12:20 Mental Status Exam Vitals: Last Vital Signs Temp 97.9 F 10/20/17 08:00 Pulse 96 10/20/17 08:00 Resp 20 10/20/17 08:00 BP 121/84 10/20/17 08:00 Pulse Ox 96 10/20/17 08:00 Height: 1.78 m Weight: 104.2 kg - Mental Status Exam Muscle Strength/Tone: Normal Dressing: Casual Grooming: Fair Attitude: Cooperative Motor Activity: Normal Eye Contact: Good Speech: Normal Volume: Normal Rhythm: Appropriate Rhythm Orientation: Disoriented to time (can name month/year), Oriented to person, Oriented to place Mood: Euthymic Affect: Relaxed Rate of Thoughts: Appropriate Rate Thought Organization: Organized Associations: Intact Abstract Reasoning: Poor abstract reasoning Thought Content: Paranoia (improving) Perception/Psychotic: Psychotic (improving) Current Hallucinations: Auditory (unclear) Language: Naming Intact Fund of Knowledge: Other (likely decreased from baseline - will repeat SLUMS today) Memory: Poor-recent Suicidal Ideation: Denies Homicidal Ideation: Denies Insight: Impaired Judgement: Impaired Impulse Control: Fair - Laboratory Result Diagrams: 10/20/17 10:18 10/20/17 10:18 Laboratory Results - last 24 hr 10/20/17 10/20/17 10:18 10:18 WBC 6.2 RBC 4.25 Hgb 12.3 Hct 40.0 MCV 94.1 MCH 28.9 MCHC 30.8 L RDW Std Deviation 44.5 Plt Count 261 MPV 9.8 Immature Gran % (Auto) 0.2 Neut % (Auto) 69.6 H Lymph % (Auto) 21.5 L Hamilton % (Auto) 5.3 Eos % (Auto) 2.9 Baso % (Auto) 0.5 Neut # (Auto) 4.3 Lymph # (Auto) 1.3 Hamilton # (Auto) 0.3 Eos # (Auto) 0.2 Baso # (Auto) 0.0 Abs Immat Gran (auto) 0.01 Turbidity < 20 Sodium 143 Potassium 4.3 Chloride 107 Carbon Dioxide 25 Anion Gap 11 BUN 27.0 H Creatinine 1.6 H GFR Calculation 33 BUN/Creatinine Ratio 17 Glucose 179 H Calculated Osmolality 284 H Calcium 9.2 Icterus Index < 2 Specimen Hemolysis < 15 Assessment and Plan (1) Psychosis Problem details: R/O Delirium due to unknown etiology History of Bipolar 1 disorder R/O Schizoaffective disorder R/O Delusional disorder R/O Major neurocognitive disorder Current visit: Yes Status: Acute (2) COPD (chronic obstructive pulmonary disease) Current visit: Yes Status: Acute (3) HTN (hypertension) Current visit: Yes Status: Acute (4) HLD (hyperlipidemia) Current visit: Yes Status: Acute (5) CAD (coronary artery disease) Current visit: Yes Status: Acute (6) CKD (chronic kidney disease) Current visit: Yes Status: Acute (7) Obesity Current visit: Yes Status: Acute (8) GERD (gastroesophageal reflux disease) Current visit: Yes Status: Acute (9) Osteoarthritis Current visit: Yes Status: Acute Continue current care; will contact patient's daughter and LTC facility in regards to baseline as she continues to improve. Will repeat SLUMS today. Hospital Course Summary Disclaimer: The visit summary below is not to be considered part of the above Progress Note. Hospital Course: Plan 10/13/16 Agree with admission to [facility]. Creatinine is elevated with a normal BUN - this was discussed with her SUPPORT SERVICE TECH, Yuliya Wagner. She sees Dr. Callaway and Dr. Francis for chronic kidney disease. Creatinine was also 1.8 in July 2017. Regarding contusion to her left lower extremity, this was also evaluated by Yuliya Wagner. She had normal range of motion a week ago, and she reports that her leg is improving. Chest x-ray reviewed, no evidence for pneumonia. Likewise, no wheezing on exam. We'll continue to monitor for COPD exacerbation or any respiratory symptoms. Patient requests to discontinue aspirin because she no longer has chest pain ( however, earlier in conversation, she reported chest pain) - would recommend to continue for now and follow up with Dr. Sanchez. Chart reviewed. Medically stable. 10/14/17 Psych: Decrease Flexeril from 10mg to 5mg at HS. 10/15/17 Psych: Patient improved from yesterday. Will change dosing of Geodon BID to with meals. It is unclear if medication was being taken with food at facility. Monitor mood, behavior and response to treatment. 10/16/17 Psych: Continue current care; patient seems to be more energetic and less isolative. It may be that Geodon is more effective when she is taking it with meals as prescribed. Monitor mood, behavior and response to treatment. 10/17- Overall appears medially stable. Labs from today reviewed. Turntable Operator 1.5 (known CKD with previous Turntable Operator 1.8 in July). Continue with inhalers given underlying COPD. Sodium slightly elevated, Encourage PO intake. Check BMP next week 10/17/17 Psych: Will hold Wellbutrin XL for the time being and continue Geodon 80mg PO BID with meals. Last Invega Trinza injection given 10/10/17. Would like to discuss patient's baseline with daughter. Monitor mood, behavior and response to treatment. 10/18/17 Remains delusional with AH. Continue current care 10/19/17 Remains delusional but no behaviors. Continue current care Plan - 10/19/17 Overall, Kami appears medially stable. Continue psychiatric care per Dr. Avila and team. Complains of constipation. Will add miralax and senna plus daily. MOM PRN. Continue to encourage bowel motivation. Continue with inhalers given underlying COPD. Breathing stable without wheezing on exam. Continue to encourage oral intake. Will recheck BMP in AM to monitor electrolytes and renal function given recent hypernatremia. Will check CBC in AM to monitor blood counts. Encourage to participate in unit activities. 10/20/17 Psych: Continue current care; will contact patient's daughter and LTC facility in regards to baseline as she continues to improve. Will repeat SLUMS today.
[2017-10-20] MEDS: ACETAMINOPHEN 500 MG TABLET PO PRN (18:04)
[2017-10-20] MEDS: ALBUTEROL/IPRATROPIUM 2.5mg-0.5mg/3ml NEB AEROSOL PRN (20:53)
[2017-10-21] MEDS: MAG-AL + SIM ORAL LIQUID 30ml PO SCH ×3 (02:27→17:16)
[2017-10-21] MEDS: GUAIFENESIN 400MG TABLET PO SCH ×2 (08:36→19:42)
[2017-10-21] MEDS: ASPIRIN 81 MG CHEWABLE TABLET PO SCH (08:36)
[2017-10-21] MEDS: ZIPRASIDONE 40 MG CAPSULE PO SCH ×2 (08:36→17:15)
[2017-10-21] MEDS: OMEPRAZOLE 20 MG CAPSULE PO SCH (08:36)
[2017-10-21] MEDS: POLYETHYL GLYCOL 3350 17gm PACKET PO SCH (08:37)
[2017-10-21] MEDS: SENNA + DOCUSATE TABLET PO SCH ×2 (08:37→19:42)
[2017-10-21] MEDS: PROPRANOLOL LA 80 MG CAPSULE PO SCH (08:37)
[2017-10-21] MEDS: TIOTROPIUM 18mcg/cap HANDIHALER ORAL INH SCH (10:28)
--- NOTE | 2017-10-21 14:21 | Neuropsych Progress Note ---
[facility] Subjective Date: 10/21/17 - Sujective/Severity of Illness Medications: Acetaminophen (Tylenol) 1,000 mg PO BID PRN PRN Reason: Pain Last Admin: 10/20/17 18:04 Dose: 1,000 mg Al Hydroxide/Mg Hydroxide (Maalox Plus) 30 ml PO Q8HR [facility] Last Admin: 10/21/17 08:37 Dose: 30 ml Albuterol/Ipratropium (Duoneb) 3 ml AEROSOL HS PRN PRN Reason: Cough Last Admin: 10/20/17 20:53 Dose: 3 ml Aspirin (Asa) 81 mg PO DAILY [facility] Last Admin: 10/21/17 08:36 Dose: 81 mg Bupropion HCl (Wellbutrin Xl) 150 mg PO DAILY [facility] Last Admin: 10/17/17 08:23 Dose: 150 mg Cyclobenzaprine HCl (Flexeril) 5 mg PO HS PRN PRN Reason: Muscle spasm Guaifenesin (Mucinex) 400 mg PO BID [facility] Last Admin: 10/21/17 08:36 Dose: 400 mg Haloperidol (Haldol) 0.5 mg PO Q6H PRN PRN Reason: Extreme agitation Haloperidol Lactate (Haldol) 0.5 mg IM Q6H PRN PRN Reason: Extreme agitation Lorazepam (Ativan) 0.5 mg PO Q6H PRN PRN Reason: Extreme agitation Lorazepam (Ativan Inj) 0.5 mg IM Q6H PRN PRN Reason: Extreme agitation Magnesium Hydroxide (Mom) 30 ml PO DAILY PRN PRN Reason: Constipation Last Admin: 10/19/17 15:32 Dose: 30 ml Omeprazole (Prilosec) 20 mg PO ACB [facility] Last Admin: 10/21/17 08:36 Dose: 20 mg Polyethyl Glycol/Propylene Glycol (Systane Eye Drops) 1 drop EACH EYE PRN PRN Polyethylene Glycol (Miralax) 17 gm PO DAILY [facility] Last Admin: 10/21/17 08:37 Dose: 17 gm Propranolol HCl (Inderal La) 80 mg PO DAILY [facility] Last Admin: 10/21/17 08:37 Dose: 80 mg Senna/Docusate Sodium (Senna Plus Tablet) 1 tab PO BID [facility] Last Admin: 10/21/17 08:37 Dose: 1 tab Tiotropium [place] (Spiriva) 1 cap ORAL INH DAILY [facility] Last Admin: 10/21/17 10:28 Dose: 1 cap Ziprasidone (Geodon) 80 mg PO BIDWM [facility] Last Admin: 10/21/17 08:36 Dose: 80 mg Subjective: Patient seen and chart reviewed. Case discussed with treatment team. Patient is sleeping at time of rounds after listening to music on the iPod to relax. Per care facility, patient can have bizarre thought content at baseline. Nursing staff report has not had significant behavioral difficulties on the unit , and she has seemed less confused than previously. She has not been isolating excessively. Patient has been adherent with medications. Patient slept 6 hours overnight. VSS. Patient is eating well. Psychotropic PRNs required in the past 24 hours: none. MSE below based on my last interaction with patient. Start Time: 10:20 Stop Time: 10:35 Mental Status Exam Vitals: Last Vital Signs Temp 98.0 F 10/21/17 08:00 Pulse 86 10/21/17 08:00 Resp 20 10/21/17 08:00 BP 127/86 10/21/17 08:00 Pulse Ox 94 10/21/17 08:00 Height: 1.78 m Weight: 105.8 kg - Mental Status Exam Muscle Strength/Tone: Normal Dressing: Casual Grooming: Fair Attitude: Cooperative Motor Activity: Normal Eye Contact: Good Speech: Normal Volume: Normal Rhythm: Appropriate Rhythm Orientation: Disoriented to time (can name month/year), Oriented to person, Oriented to place Mood: Euthymic Rate of Thoughts: Appropriate Rate Thought Organization: Organized Associations: Intact Abstract Reasoning: Poor abstract reasoning Thought Content: Paranoia (improving) Perception/Psychotic: Psychotic (improving) Current Hallucinations: Auditory (unclear) Language: Naming Intact Fund of Knowledge: Other (likely decreased from baseline - will repeat SLUMS today) Memory: Poor-recent Suicidal Ideation: Denies Homicidal Ideation: Denies Insight: Impaired Judgement: Impaired Impulse Control: Fair - Laboratory Result Diagrams: 10/20/17 10:18 10/20/17 10:18 Assessment and Plan (1) Psychosis Problem details: Schizophrenia vs. schizoaffective disorder - bipolar type History of Bipolar 1 disorder R/O Major neurocognitive disorder Current visit: Yes Status: Acute (2) COPD (chronic obstructive pulmonary disease) Current visit: Yes Status: Acute (3) HTN (hypertension) Current visit: Yes Status: Acute (4) HLD (hyperlipidemia) Current visit: Yes Status: Acute (5) CAD (coronary artery disease) Current visit: Yes Status: Acute (6) CKD (chronic kidney disease) Current visit: Yes Status: Acute (7) Obesity Current visit: Yes Status: Acute (8) GERD (gastroesophageal reflux disease) Current visit: Yes Status: Acute (9) Osteoarthritis Current visit: Yes Status: Acute Continue current care; SW to finalize discharge arrangements with facility. Will ensure they are aware Geodon must be given with at least ~500 calories to absorb. Hospital Course Summary Disclaimer: The visit summary below is not to be considered part of the above Progress Note. Hospital Course: Plan 10/13/16 Agree with admission to [facility] [place]. Creatinine is elevated with a normal BUN - this was discussed with her MARINE RAILWAY OPERATOR, Yuliya Wagner. She sees Dr. Callaway and Dr. Francis for chronic kidney disease. Creatinine was also 1.8 in July 2017. Regarding contusion to her left lower extremity, this was also evaluated by Yuliya Wagner. She had normal range of motion a week ago, and she reports that her leg is improving. Chest x-ray reviewed, no evidence for pneumonia. Likewise, no wheezing on exam. We'll continue to monitor for COPD exacerbation or any respiratory symptoms. Patient requests to discontinue aspirin because she no longer has chest pain ( however, earlier in conversation, she reported chest pain) - would recommend to continue for now and follow up with Dr. Sanchez. Chart reviewed. Medically stable. 10/14/17 Psych: Decrease Flexeril from 10mg to 5mg at HS. 10/15/17 Psych: Patient improved from yesterday. Will change dosing of Geodon BID to with meals. It is unclear if medication was being taken with food at facility. Monitor mood, behavior and response to treatment. 10/16/17 Psych: Continue current care; patient seems to be more energetic and less isolative. It may be that Geodon is more effective when she is taking it with meals as prescribed. Monitor mood, behavior and response to treatment. 10/17- Overall appears medially stable. Labs from today reviewed. Peoplesoft Taleo Manager 1.5 (known CKD with previous Peoplesoft Taleo Manager 1.8 in July). Continue with inhalers given underlying COPD. Sodium slightly elevated, Encourage PO intake. Check BMP next week 10/17/17 Psych: Will hold Wellbutrin XL for the time being and continue Geodon 80mg PO BID with meals. Last Invega Trinza injection given 10/10/17. Would like to discuss patient's baseline with daughter. Monitor mood, behavior and response to treatment. 10/18/17 Remains delusional with AH. Continue current care 10/19/17 Remains delusional but no behaviors. Continue current care Plan - 10/19/17 Overall, Kami appears medially stable. Continue psychiatric care per Dr. Avila and team. Complains of constipation. Will add miralax and senna plus daily. MOM PRN. Continue to encourage bowel motivation. Continue with inhalers given underlying COPD. Breathing stable without wheezing on exam. Continue to encourage oral intake. Will recheck BMP in AM to monitor electrolytes and renal function given recent hypernatremia. Will check CBC in AM to monitor blood counts. Encourage to participate in unit activities. 10/20/17 Psych: Continue current care; will contact patient's daughter and LTC facility in regards to baseline as she continues to improve. Will repeat SLUMS today. 10/21/17 Psych: Continue current care; SW to finalize discharge arrangements with facility. Will ensure they are aware Geodon must be given with at least ~ 500 calories to absorb.
--- NOTE | 2017-10-21 16:13 | Extended Care Facility Orders ---
Admission Orders Admit to:: [facility] Allergies/Adverse Reactions: Allergies clarithromycin Allergy (Unknown, Verified 07/15/17 23:43) fluphenazine Allergy (Unknown, Verified 07/15/17 23:43) morphine Allergy (Unknown, Verified 07/15/17 23:43) moxifloxacin Allergy (Unknown, Verified 07/15/17 23:43) Penicillins Allergy (Unknown, Verified 07/15/17 23:43) Tetanus Vaccines and Toxoid Allergy (Unknown, Verified 07/15/17 23:43) Admitting Diagnosis: generations clearance Admitting Physician: Randa Avila MD Attending Physician: Randa Avila MD Code Status: Full Code Anticiapted Length of Stay: greater than 30 days Rehab Potential: fair Rehab Prognosis: fair Diet: Regular Wound/Incision Care: N/A May use Facility Protocol or Standing Orders: Yes May have flu vaccine: Yes Evaluations/Treatment: Psychiatric, as needed Prison Certification: I certify that SNF services are required to be given on an Inpatient basis because of the patients need for senior living care on a continuing basis for the condition(s) for which he/she received inpatient hospital services prior to his/her transfer to the SNF. SNF inpatient care is necessary for the following reasons Indication for Prison: Not Applicable - Additional Information In Event of Arrest: Start CPR,call 911,send patient to the ER Resident is Aware of Diagnosis: Yes Referrals: Jessica Cheek MD [Family Provider] - (Dr. Gaudencio Cheek will see patient on rounds at the facility for Hosp. follow-up. [phone]. Dr. Cheek will manage patients Mental Health needs. )
[2017-10-22] MEDS: GUAIFENESIN 400MG TABLET PO SCH ×3 (01:54→10:51)
[2017-10-22] MEDS: SENNA + DOCUSATE TABLET PO SCH ×2 (01:54→10:52)
[2017-10-22] MEDS: MAG-AL + SIM ORAL LIQUID 30ml PO SCH ×3 (01:54→10:51)
[2017-10-22] MEDS: OMEPRAZOLE 20 MG CAPSULE PO SCH (06:29)
[2017-10-22 07:20] VITALS: BP 179/82; PULSE 79; RESP 22; TEMP 97.5; O2SAT 94
[2017-10-22] MEDS: ZIPRASIDONE 40 MG CAPSULE PO SCH (07:51)
[2017-10-22] MEDS: POLYETHYL GLYCOL 3350 17gm PACKET PO SCH ×2 (07:51→10:52)
[2017-10-22] MEDS: PROPRANOLOL LA 80 MG CAPSULE PO SCH ×2 (07:51→10:52)
[2017-10-22] MEDS: ASPIRIN 81 MG CHEWABLE TABLET PO SCH ×2 (07:51→10:51)
[2017-10-22] MEDS: TIOTROPIUM 18mcg/cap HANDIHALER ORAL INH SCH (08:59)
[2017-10-22] MEDS ORDERED: FOLBIC TABLET PO SCH (10:00)
--- NOTE | 2017-10-22 10:01 | Progress Note ---
Progress Note: Kami is seen briefly this morning while sitting in the day room, preparing for discharge. She denies any complaints or concerns and is eager for discharge. Chart reviewed. B12 deficiency noted with B12 at 258 on 10/13/17. Will initiate supplementation prior to discharge and recommend continuation following discharge. Overall, she is doing well and medically stable for discharge.
== END 2017-10-22 12:05 | DRG 885 ==
LOC: ED 15:09 → GEN 16:55
PROVIDERS: ADMIT Psychiatry & Neurology Psychiatry; ATTEND Psychiatry & Neurology Psychiatry